=== PATIENT | male | born 2005 | race Caucasian/White ===

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

== ENCOUNTER 2023-12-22 19:15 | Emergency (ER) | payer OTHER, SELFPAY ==
[2023-12-22 19:41] VITALS: BP 105/59; PULSE 90; RESP 18; TEMP 36.6; O2SAT 98; BMI 37.2
--- NOTE | 2023-12-22 19:45 | ED.DENTAL ---
HPI - Dental/Oral General Chief complaint: Dental/Oral Stated complaint: Dental pain Time Seen by Provider: 12/22/23 19:44 Source: patient Mode of arrival: ambulatory Limitations: no limitations History of Present Illness ED Provider: SAMAN MINER PA-C HPI Narrative: 18-year-old male with no significant past medical history presents to the emergency department today for evaluation of dental pain x1 month. Reports a chipped/broken tooth to his right lower molar approximately 1 month ago. Reports pain has been increasing with intermittent pain radiation to right ear. Pain is exacerbated with eating/ chewing. Reports associated headache. He has been taking tylenol at home with minimal relief. Denies fever, chills, difficulty swallowing, pain with swallowing, hearing changes, N/V. MD Complaint: tooth pain Related Data Previous Rx's ?Medication ?Instructions ?Recorded fluticasone propionate 50 1 spray intranasal DAILY #16 grams 10/13/22 mcg/actuation nasal spray,suspension (Flonase Allergy Relief) cetirizine 10 mg tablet (Zyrtec) 10 mg PO DAILY PRN allergy 11/17/22 symptoms #90 tabs amoxicillin 875 mg-potassium 1 tab PO BID 7 days #14 tabs 12/22/23 clavulanate 125 mg tablet tramadol 50 mg tablet 50 mg PO Q8H PRN pain (scale score 12/22/23 7-10) #5 tabs Allergies Allergy/AdvReac Type Severity Reaction Status Date / Time No Known Allergies Allergy Verified 12/22/23 19:43 [No Known Allergies*] Review of Systems Review of Systems: Constitutional: No fever, chills, fatigue, night sweats, weight changes ENT/Mouth: No ear pain, hearing loss, nasal congestion, sinus pain, rhinorrhea, sore throat, +dental pain Eyes: No eye pain, swelling, redness, vision changes, discharge Cardio: No chest pain, palpitations, LANDRUM, orthopnea, peripheral edema Pulm: No SOB, cough, sputum, wheezing, dyspnea, hemoptysis GI: No nausea, vomiting, hematemesis, abdominal pain, diarrhea, constipation, hematochezia, melena : No irregular bleeding, dysuria, frequency, urgency, hesitancy, hematuria, flank pain, urinary flow changes, urinary incontinence or retention MSK: No back pain, neck pain, joint pain, myalgias Skin: No lesions, rashes Neuro: No weakness, numbness, paresthesias, LOC, dizziness, +headache Psych: No anxiety/panic, depression, SI/HI, AH/VH All other systems reviewed and are negative. [facility] Past Medical History Attestation statement: The following information was validated with the patient. Source: old records reviewed and nursing notes reviewed Medical History Traumatic hematoma of left lower leg Surgical History No pertinent past surgical history Family History Family History Mother Anxiety Bipolar disorder Social History Social History Household Members: Family Patient Tobacco Use Status: Never used Tobacco Cognitive needs: No Hearing needs: No Vision needs: Yes (sees eye ) Physical Exam Vital Signs: Vital Signs: Last Vital Signs Temp 97.9 F 12/22/23 19:41 Pulse 90 12/22/23 19:41 Resp 18 12/22/23 19:41 BP 105/59 L 12/22/23 19:41 Pulse Ox 98 12/22/23 19:41 O2 Del Method Room Air 12/22/23 19:41 BMI result Body Mass Index 37.2 Vital signs stable, afebrile. Const: General: cooperative, comfortable and no acute distress Orientation/consciousness: patient oriented x3 Limitations: no limitations HEENT: Other: + No facial edema. Tongue and lips wnl + multiple dental caries and poor dentition. right lower molar with localized periapical swelling to the buccal ginginva. No pointing. No active bleeding or discharge. TTP. No palpable fluctuance. + No edema to buccal mucosa + Posterior oropharynx without erythema/edema. Uvula midline. Controlling secretions and speaking in complete sentences + No submandublar or submental LAD + No cervical LAD + no anterior neck swelling Head: Yes normal to inspection, Yes No palpable skull fracture present, Yes normocephalic and Yes atraumatic Ears: hearing grossly normal bilaterally, external ears normal, TM's normal bilaterally, EAC's normal, mastoids normal and no periauricular adenopathy Eyes: General: appearance normal, both eyes and all related structures Conjunctivae: conjunctivae normal Sclerae: sclerae normal Pupils: Equal, round and reactive pupils present Neck: Neck: Yes normal visual inspection and Yes no lymphadenopathy Resp: Effort & Inspection: normal respiratory effort and no stridor Auscultation: clear to auscultation bilaterally Cardio: Rate: regular rate Rhythm: regular rhythm Skin: General skin exam: no rashes or lesions noted Neuro: General: patient oriented x3 and gait normal Cranial nerves: Yes Equal, round and reactive pupils present Course Course Course Narrative: 1951-- Patient noted to have dental infection. There is no evidence of abscess that warrants drainage at this time. Will treat patient's pain and patient will be discharged home on augmentin to ensure there is no worsening infection for follow-up with dentist. Patient advised to follow up with dentist this week. A referral has been provided. Patient has remained stable throughout ED visit today. I discussed worrisome signs and symptoms and when to return to the ED. All questions answered at this time. Patient is agreeable with disposition and stable for discharge. Medical Decision Making Medical Decision Making [facility] Narrative: 18-year-old male with no significant past medical history presents to the emergency department today for evaluation of dental pain x1 month. Vital signs stable, afebrile. He is nontoxic-appearing and in no acute distress. on exam, No facial edema. Tongue and lips wnl. multiple dental caries and poor dentition. right lower molar with localized periapical swelling to the buccal ginginva. No pointing. No active bleeding or discharge. TTP. No palpable fluctuance. No edema to buccal mucosa. Posterior oropharynx without erythema/edema. Uvula midline. Controlling secretions and speaking in complete sentences. No submandublar or submental LAD. No cervical LAD. no anterior neck swelling. bilateral EACs and TMs wnl. no mastoid tenderness. Differential includes dental/ periapical abscess/infection, apthous stomatitis. Unlikely mono, herpes, sialadenitis, sialolithiasis, FACILITIES OPERATOR, retropharyngeal abscess, deep neck infection, osteomyelitis, facial cellulitis/ abscess, lymphoma, ludwigs angina. Plan for pain control and discharge home with antibiotics and dentist follow up. Differential Diagnosis Differential Diagnoses: The differential diagnosis associated with the presentation includes as above. Admission/Observation Not indicated. Tests considered The following testing was considered but not selected: I considered obtaining a CT of the soft tissues neck however these is no evidence of ludwigs angina or concern for deep tissue infection. Not warranted at this time. Prescription Management I considered prescription management with: Pain Medication (tramadol) and Antibiotic (augmentin) Chronic Conditions Patient?s care impacted by: Other (dental caries) Social Determinants Patient?s care significantly limited by Social Determinants of Health including: Other Social Determinant of Health Critical Care Time Critical Care Time Critical Care Time: No Discharge Plan Discharge Clinical Impression: Toothache, Dental caries Patient Disposition: Home, Self-Care Instructions: Toothache (ED) Additional Instructions: You were evaluated in ED today for dental pain. You have a dental infection. Augmentin is an antibiotic that has been sent to your pharmacy for treatment. Take this as prescribed and do not skip any doses. Take this to completion or the infection may persist or worsen. On Augmentin, softer bowel movements are to be expected. Call your provider if you move your bowels more than 4 times a day, your bowel movements are almost all liquid, or you get a rash.? Take tylenol/ motrin at home as needed for pain. Tramadol is a pain medication that has been sent to your pharmacy for you to take for break-through pain. Use this with caution. YOU NEED TO FOLLOW UP WITH A DENTIST. You have been provided with a referral to [facility]. They are currently taking new clients. Call them to make an appointment. They will not call you. Return with new or worsening symptoms. In the case of an emergency call [phone]. [facility]: [phone] [address] [facility] [id number] Prescriptions: New amoxicillin-pot clavulanate 875-125 mg tablet 1 tab PO BID 7 Days Qty: 14 0RF tramadol 50 mg tablet 50 mg PO Q8H PRN (Reason: pain (scale score 7-10)) Qty: 5 0RF No Action cetirizine [Zyrtec] 10 mg tablet 10 mg PO DAILY PRN (Reason: allergy symptoms) Qty: 90 1RF Rx Instructions: Take 1 tablet daily by mouth as needed for allergy symptoms fluticasone propionate [Flonase Allergy Relief] 50 mcg/actuation spray,suspension 1 spray intranasal DAILY Qty: 16 0RF Rx Instructions: administer into each nostril Print Language: German
[2023-12-22 19:59] VITALS: BP 105/59; PULSE 90; RESP 18; TEMP 36.6; O2SAT 98
== END 2023-12-22 20:00 | disposition home or self-care (01) ==
PROVIDERS: Emergency Provider Emergency Medicine
DX: K08.89 Other specified disorders of teeth and supporting structures (principal); K02.9 Dental caries, unspecified; Z79.899 Other long term (current) drug therapy
CPT/HCPCS: 99282; 99283